=== PATIENT | female | born 1970 | race Caucasian/White ===

== ENCOUNTER 2022-01-03 04:29 | Day surgery (SDC) | payer OTHER ==
[2021-12-31 16:18] VITALS: BMI 27.7
[2022-01-03 11:35] VITALS: TEMP 98.2
[2022-01-03 12:13] VITALS: BP 135/73; PULSE 53
== END 2022-01-03 12:23 | disposition home or self-care (01) ==
LOC: JASU-ENDO 04:29
PROVIDERS: ATTEND Internal Medicine Gastroenterology
PROC: 0DJD8ZZ Inspection of Lower Intestinal Tract, Via Natural or Artificial Opening Endoscopic (ICD-10-PCS; principal; 2022-01-03 10:00)
DX: Z12.11 Encounter for screening for malignant neoplasm of colon (principal)
CPT/HCPCS: 81025